=== PATIENT | female | born 1960 | race Caucasian/White ===

== ENCOUNTER → 2017-02-18 | Outpatient (CLI) | payer BC ==
--- NOTE | 2017-02-19 16:13 | BD ---
EXAMINATION TYPE: MG DEXA axial skeleton. DATE OF EXAM: 02/18/2017 COMPARISON: NONE CLINICAL HISTORY: Z13.820 SCREEN FOR OSTEOPORSIS Height: 5 FT 4 1/2 IN Weight: 151 FRAX RISK QUESTIONS: Alcohol (3 or more units per day): NO Family History (Parent hip fracture): NO Glucocorticoids (More than 3mos): NO (Ex: prednisone, prednisolone, methylprednisolone, dexamethasone, and hydrocortisone). History of Fracture in Adulthood: NO Secondary Osteoporosis: 1. Type 1 Diabetes: NO 2. Hyperthyroidism: NO 3. Menopause before 45: NO 4. Malnutrition: NO 5. Chronic liver disease: NO Rheumatoid Arthritis: NO Current Tobacco Use: NO RISK FACTORS HISTORY OF: Active: YES Postmenopausal woman: AGE 51 MEDICATIONS: Additional Medications: TETRACYCLINE NEEDED Additional History: EXAM MEASUREMENTS: Bone mineral densitometry was performed using the [facility]. Bone mineral density as measured about the Lumbar spine is: ----- L1-L4(G/cm2): 1.128 T Score Values are as follows: ----- L2: -0.5 ----- L3: 0.1 ----- L4: -0.9 ----- L1-L4: -0.4 BASELINE Bone mineral density about the R hip (g/cm2): 0.919 Bone mineral density about the L hip (g/cm2): 0.879 T Score values are as follows: -----R Neck: -0.9 -----L Neck: -1.1 -----R Total: -0.7 -----L Total: -0.6 BASELINE IMPRESSION: No evidence for osteoporosis or osteopenia. NOTE: T-SCORE=SD OF THE YOUNG ADULT MEAN.
== END | disposition home or self-care (01) ==
LOC: RADBDWWP 12:56
PROVIDERS: ATTEND Obstetrics & Gynecology
DX: Z13.820 Encounter for screening for osteoporosis (principal)
CPT/HCPCS: 77080

== ENCOUNTER → 2018-01-26 | Outpatient (CLI) | payer BC ==
--- NOTE | 2018-01-27 10:15 | MM ---
Reason for exam: screening (asymptomatic). Last mammogram was performed 1 year ago. History: Patient is postmenopausal, has history of other cancer at age 55, and is nulliparous. Family history of breast cancer in aunt at age 52 and breast cancer in paternal cousin at age 55. Benign US left CoreBiopsy of the left breast, January 17, 2005. Excisional biopsy of the left breast, 2002. 3 cyst aspirations of the left breast. 3 cyst aspirations of the right breast. Took hormonal contraceptives for 2 years. Physical Findings: A clinical breast exam by your physician is recommended on an annual basis and results should be correlated with mammographic findings. MG 3D Screening Mammo W/Cad Bilateral CC and MLO view(s) were taken. Prior study comparison: January 14, 2017, bilateral MG 3d diag mammo w/cad [facility]. January 17, 2016, bilateral MG 3d diag mammo w/cad [facility]. The breast tissue is heterogeneously dense. This may lower the sensitivity of mammography. There are round, oval, circumscribed bilateral stable masses. No suspicious abnormality. Left biopsy marker noted. ASSESSMENT: Benign, BI-RAD 2 RECOMMENDATION: Routine screening mammogram of both breasts in 1 year.
== END | disposition home or self-care (01) ==
LOC: RADMAMWWP 10:45
PROVIDERS: ATTEND Internal Medicine
DX: Z12.31 Encounter for screening mammogram for malignant neoplasm of breast (principal)
CPT/HCPCS: 77063; 77067

== ENCOUNTER → 2018-11-11 | Outpatient (CLI) | payer BC ==
--- NOTE | 2018-11-12 08:22 | US ---
EXAMINATION TYPE: US carotid duplex BILAT DATE OF EXAM: 11/11/2018 COMPARISON: NONE CLINICAL HISTORY: I65.23 Occlusion and stenosis of bilateral carotid. EXAM MEASUREMENTS: RIGHT: Peak Systolic Velocity (PSV) cm/sec ----- Right CCA: 80.8 ----- Right ICA: 85.5 ----- Right ECA: 168.8 ICA/CCA ratio: 1.1 RIGHT: End Diastole cm/sec ----- Right CCA: 29.3 ----- Right ICA: 31.5 ----- Right ECA: 40.6 LEFT: Peak Systolic Velocity (PSV) cm/sec ----- Left CCA: 75.6 ----- Left ICA: 96.5 ----- Left ECA: 65.6 ICA/CCA ratio: 1.3 LEFT: End Diastole cm/sec ----- Left CCA: 28.5 ----- Left ICA: 44.7 ----- Left ECA: 16.1 VERTEBRALS (direction of flow): Right Vertebral: Antegrade Left Vertebral: Antegrade Rhythm: Normal No significant stenosis seen, Elevated right ECA velocity. Mild bilateral plaque noted. IMPRESSION: Mild degree of grayscale atheromatous plaquing with no sonographically evident hemodynam ically significant stenosis within either visualized carotid arterial system other than elevated [place] in the right external carotid artery that may relate to 50-69% stenosis. Criteria for Assigning % of Stenosis / Diameter reduction (Estimation based on the indirect measurements of the internal carotid artery velocities (ICA PSV). 1. Normal (no stenosis)=ICA PSV < 125 cm/s: ratio < 2.0: ICA EDV<40 cm/s. 2. Less than 50% stenosis=ICA PSV < 125 cm/s: ratio < 2.0: ICA EDV<40 cm/s. 3. 50 to 69% stenosis=ICA PSV of 125 to 230 cm/s: ration 2.0 ? 4.0: ICA EDV 40-100 cm/s. 4. Greater than 70% stenosis to near occlusion= ICA PSV > 230 cm/s: ratio > 4.0: ICA EDV > 100 cm/s. 5. Near occlusion= ICA PSV velocities may be low or undetectable: variable ratio and ICA EDV. 6. Total occlusion=unable to detect flow.
--- NOTE | 2018-11-12 11:49 | ECHOF ---
Referral Reason:I35.1 Nonrheumatic Aortic Regurgitation MEASUREMENTS -------- HEIGHT: 162.6 cm WEIGHT: 64.4 kg BP: IVSd: 1.1 cm (0.6 - 1.1) LVIDd: 2.9 cm (3.9 - 5.3) LVPWd: 1.4 cm (0.6 - 1.1) IVSs: 1.6 cm LVIDs: 1.5 cm LVPWs: 1.7 cm LAESV Index (A-L): 16.90 ml/m Ao Diam: 2.5 cm (2.0 - 3.7) AV Cusp: 1.9 cm (1.5 - 2.6) LA Diam: 3.3 cm (2.7 - 3.8) MV EXCURSION: 14.317 mm (> 18.000) MV EF SLOPE: 64 mm/s (70 - 150) EPSS: 0.9 cm MV E Mervin: 0.53 m/s MV DecT: 165 ms MV A Mervin: 0.56 m/s MV E/A Ratio: 0.96 RAP: 5.00 mmHg RVSP: 12.80 mmHg TAPSE: 27.98 mm FINDINGS -------- Sinus rhythm. This was a technically good study. The left ventricular size is normal. There is mild concentric left ventricular hypertrophy. Overa ll left ventricular systolic function is normal with, an EF between 55 - 60 %. The diastolic fillin g pattern is normal for the age of the patient 6.30. The right ventricle is normal in size. The right ventricular systolic function is normal. The left atrial size is normal. The right atrial size is normal. Interatrial and interventricular septum intact. The aortic valve is trileaflet and appears structurally normal. The mitral valve is normal. There is trace mitral regurgitation. The tricuspid valve appears structurally normal. Trace tricuspid regurgitation present. Right stephanie tricular systolic pressure is normal at < 35 mmHg. There is no pulmonic regurgitation present. The aortic root size is normal. Normal inferior vena cava with normal inspiratory collapse consistent with estimated right atrial pre ssure of 5 mmHg. All pulmonary veins appear normal. The flow patterns, measured by Doppler, appear normal. There is no pericardial effusion. CONCLUSIONS -------- 1. Sinus rhythm. 2. This was a technically good study. 3. The left ventricular size is normal. 4. There is mild concentric left ventricular hypertrophy. 5. Overall left ventricular systolic function is normal with, an EF between 55 - 60 %. 6. The diastolic filling pattern is normal for the age of the patient 6.30 7. The right ventricle is normal in size. 8. The right ventricular systolic function is normal. 9. The left atrial size is normal. 10. The right atrial size is normal. 11. Interatrial and interventricular septum intact. 12. The aortic valve is trileaflet and appears structurally normal. 13. The mitral valve is normal. 14. There is trace mitral regurgitation. 15. The tricuspid valve appears structurally normal. 16. Trace tricuspid regurgitation present. 17. Right ventricular systolic pressure is normal at < 35 mmHg. 18. There is no pulmonic regurgitation present. 19. The aortic root size is normal. 20. Normal inferior vena cava with normal inspiratory collapse consistent with estimated right atrial pressure of 5 mmHg. 21. All pulmonary veins appear normal. 22. The flow patterns, measured by Doppler, appear normal. 23. There is no pericardial effusion. TIRE INSTALLER: Radha Gauthier RDCS
== END | disposition home or self-care (01) ==
LOC: RADECHMAIN 15:40
PROVIDERS: ATTEND Internal Medicine
DX: I08.1 Rheumatic disorders of both mitral and tricuspid valves (principal); I65.23 Occlusion and stenosis of bilateral carotid arteries
CPT/HCPCS: 93306; 93880

== ENCOUNTER → 2018-11-26 | Outpatient (CLI) | payer BC ==
--- NOTE | 2018-11-29 13:40 | MM ---
Reason for exam: screening (asymptomatic). Last mammogram was performed 10 months ago. History: Patient is postmenopausal, has history of other cancer at age 55, and is nulliparous. Family history of breast cancer in aunt at age 52 and breast cancer in paternal cousin at age 55. Benign US left CoreBiopsy of the left breast, January 17, 2005. Excisional biopsy of the left breast, 2002. 3 cyst aspirations of the left breast. 3 cyst aspirations of the right breast. Took hormonal contraceptives for 2 years. Physical Findings: A clinical breast exam by your physician is recommended on an annual basis and results should be correlated with mammographic findings. MG 3D Screening Mammo W/Cad Bilateral CC and MLO view(s) were taken. Prior study comparison: January 26, 2018, bilateral MG 3d screening mammo w/cad. January 14, 2017, bilateral MG 3d diag mammo w/cad [facility]. No significant changes when compared with prior studies. ASSESSMENT: Benign, BI-RAD 2 RECOMMENDATION: Routine screening mammogram of both breasts in 1 year.
== END | disposition home or self-care (01) ==
LOC: RADMAMWWP 10:58
PROVIDERS: ATTEND Internal Medicine
DX: Z12.31 Encounter for screening mammogram for malignant neoplasm of breast (principal)
CPT/HCPCS: 77063; 77067

== ENCOUNTER → 2020-01-17 | Outpatient (CLI) | payer BC, OTHER ==
--- NOTE | 2020-01-18 09:18 | MM ---
Reason for exam: screening (asymptomatic). Last mammogram was performed 1 year and 2 months ago. History: Patient is postmenopausal, has history of other cancer at age 55, and is nulliparous. Family history of breast cancer in aunt at age 52 and breast cancer in paternal cousin at age 55. Benign US left CoreBiopsy of the left breast, January 17, 2005. Excisional biopsy of the left breast, 2002. 3 cyst aspirations of the left breast. 3 cyst aspirations of the right breast. Took hormonal contraceptives for 2 years. Physical Findings: A clinical breast exam by your physician is recommended on an annual basis and results should be correlated with mammographic findings. MG 3D Screening Mammo W/Cad Bilateral CC and MLO view(s) were taken. Prior study comparison: November 26, 2018, bilateral MG 3d screening mammo w/cad. January 26, 2018, bilateral MG 3d screening mammo w/cad. The breast tissue is heterogeneously dense. This may lower the sensitivity of mammography. No significant changes when compared with prior studies. ASSESSMENT: Benign, BI-RAD 2 RECOMMENDATION: Routine screening mammogram of both breasts in 1 year.
== END | disposition home or self-care (01) ==
LOC: RADMAMWWP 11:10
PROVIDERS: ATTEND Obstetrics & Gynecology
DX: Z12.31 Encounter for screening mammogram for malignant neoplasm of breast (principal); Z80.3 Family history of malignant neoplasm of breast
CPT/HCPCS: 77063; 77067

== ENCOUNTER → 2020-10-11 | Outpatient (CLI) | payer OTHER ==
--- NOTE | 2020-10-11 16:04 | CT ---
EXAMINATION TYPE: CT abdomen pelvis w con DATE OF EXAM: 10/11/2020 HISTORY: Generalized abdominal pain, nausea and diarrhea. CT DLP: 491.1mGycm Automated Exposure Control for Dose Reduction was Utilized. CONTRAST: CT scan of the abdomen and pelvis is performed with IV Contrast, patient injected with 100ml mL of Is ovue 300. COMPARISON: None. FINDINGS: LUNG BASES: No significant abnormality is appreciated. LIVER/GB: Somewhat contracted gallbladder. Subcentimeter low dense lesion left hepatic lobe coronal i mage 24 too small to further characterize presumed benign. Similar lesions seen right hepatic lobe co angelina image 21. PANCREAS: No significant abnormality is seen. SPLEEN: No significant abnormality is seen. ADRENALS: No significant abnormality is seen. KIDNEYS: Symmetric cortical medullary uptake and excretion with extrarenal pelvis on the left. No sig nificant calyceal dilatation. There is near 1.0 cm low dense lesion right kidney laterally midpole le yamil series 7 image 32 is presumed benign. [id number]-vr-[id number] distention of bladder BOWEL: Oral contrast reaches level of cecum. Normal-appearing appendix from base of cecum. No suspici ous small or large bowel dilatation. Scattered colonic diverticula with more prominent diverticulosis in the redundant sigmoid colon. Mild diffuse colonic fecal prominence. No convincing CT evidence for acute diverticulitis. UTERUS/ADNEXA: Anteverted small size uterus consistent with patient's postmenopausal age. No suspicio us adnexal masses. Scattered bilateral pelvic phleboliths. LYMPH NODES: Single suspicious lymph node right upper abdomen posterior to IVC axial image 23 measure s 13 x 9 mm OSSEOUS STRUCTURES: Mqtiaxvc-ob-cckhmn disc space narrowing with endplate sclerosis at lumbosacral ju nction. Mild to moderate narrowing of both hip joints. OTHER: No significant additional abnormality is seen. IMPRESSION: 1. No bowel obstruction. Prominent sigmoid colonic diverticulosis noted. No convincing CT evidence fo r acute diverticulitis. Mild diffuse colonic fecal stasis. 2. Suspicious upper abdominal right retroperitoneal lymph node measuring 13 x 9 mm posterior to IVC j ust below right adrenal gland of uncertain etiology or clinical significance. Consider short-term CT follow-up in 3-6 months time to reassess.
== END | disposition home or self-care (01) ==
LOC: RADCTMAIN 13:56
PROVIDERS: ATTEND Internal Medicine
DX: K57.30 Diverticulosis of large intestine without perforation or abscess without bleeding (principal); R19.5 Other fecal abnormalities
CPT/HCPCS: 74177; Q9967

== ENCOUNTER → 2021-06-13 | Outpatient (CLI) | payer OTHER ==
--- NOTE | 2021-06-17 09:51 | MM ---
Reason for exam: screening (asymptomatic). Last mammogram was performed 1 year and 5 months ago. History: Patient is postmenopausal, has history of other cancer at age 55, and is nulliparous. Family history of breast cancer in aunt at age 52 and breast cancer in paternal cousin at age 55. Benign US left CoreBiopsy of the left breast, January 17, 2005. Excisional biopsy of the left breast, 2002. 3 cyst aspirations of the left breast. 3 cyst aspirations of the right breast. Took hormonal contraceptives for 2 years. Physical Findings: A clinical breast exam by your physician is recommended on an annual basis and results should be correlated with mammographic findings. MG 3D Screening Mammo W/Cad Bilateral CC and MLO view(s) were taken. Prior study comparison: January 17, 2020, bilateral MG 3d screening mammo w/cad. November 26, 2018, bilateral MG 3d screening mammo w/cad. The breast tissue is heterogeneously dense. This may lower the sensitivity of mammography. Previous mammotome biopsy in the left breast. No significant changes when compared with prior studies. ASSESSMENT: Benign, BI-RAD 2 RECOMMENDATION: Routine screening mammogram of both breasts in 1 year.
== END | disposition home or self-care (01) ==
LOC: RADMAMWWP 14:30
PROVIDERS: ATTEND Internal Medicine
DX: Z12.31 Encounter for screening mammogram for malignant neoplasm of breast (principal)
CPT/HCPCS: 77063; 77067

== ENCOUNTER → 2022-06-17 | Outpatient (CLI) | payer BC ==
--- NOTE | 2022-06-18 08:17 | MM ---
Reason for Exam: Screening (asymptomatic). Last screening mammogram was performed 12 month(s) ago. Indicated Problems: Pain of the left side (Global) for 6 Month(s). Patient History: Menarche at age 12. Patient has no children. Postmenopausal. Patient used Hormonal Contraceptives for 2 years. Cyst Aspiration on the Right side. Cyst Aspiration on the Right side. Cyst Aspiration on the Right side. Cyst Aspiration on the Left side. Cyst Aspiration on the Left side. Cyst Aspiration on the Left side. 2002, Excisional Biopsy on the Left side. 01/17/2005, Benign Core Biopsy on the left side. Paternal cousin had breast cancer, age 55. Maternal aunt had breast cancer, age 52. Risk Values: Cori 5 year model risk: 2.6%. NCI Lifetime model risk: 10.9%. Prior Study Comparison: 11/26/2018 Bilateral Screening Mammogram, [facility]. 01/17/2020 Bilateral Screening Mammogram, [facility]. 06/13/2021 Bilateral Screening Mammogram, [facility]. Tissue Density: The breast tissue is heterogeneously dense. This may lower the sensitivity of mammography. Findings: Analyzed By CAD. There is no suspicious group of microcalcifications or new suspicious mass in either breast. Previous mammotome biopsy in the left breast. Overall Assessment: Benign, BI-RAD 2 Management: Screening Mammogram of both breasts in 1 year. A clinical breast exam by your physician is recommended on an annual basis and results should be correlated with mammographic findings. Electronically signed and approved by: Rell Chavarria D.O.
== END | disposition home or self-care (01) ==
LOC: RADMAMWWP 09:15
PROVIDERS: ATTEND Obstetrics & Gynecology
DX: Z12.31 Encounter for screening mammogram for malignant neoplasm of breast (principal); Z78.0 Asymptomatic menopausal state; Z80.3 Family history of malignant neoplasm of breast
CPT/HCPCS: 77063; 77067

== ENCOUNTER → 2023-01-27 | Outpatient (CLI) | payer BC ==
--- NOTE | 2023-01-27 10:53 | US ---
EXAMINATION TYPE: US venous doppler duplex LE LT DATE OF EXAM: 01/27/2023 10:03 AM COMPARISON: NONE CLINICAL INDICATION: Female, 62 years old with history of M79.605 PAIN IN LEG M79.89 SWELILNG; Left l eg tingling and feels hot/ no prior DVT, pt not on blood thinners SIDE PERFORMED: Left TECHNIQUE: The lower extremity deep venous system is examined utilizing real time linear array sonog carmine with graded compression, doppler sonography and color-flow sonography. VESSELS IMAGED: Common Femoral Vein Deep Femoral Vein Greater Saphenous Vein * Femoral Vein Popliteal Vein Small Saphenous Vein * Proximal Calf Veins (* superficial vessels) Imaged veins fill with normal color signal, show the expected waveforms and compressibility. No evide nce of intraluminal filling defect. Left Leg: Negative for DVT IMPRESSION: No evidence of DVT in the left lower extremity.
== END | disposition home or self-care (01) ==
LOC: RADUSWWP 09:41
PROVIDERS: ATTEND Internal Medicine
DX: M79.89 Other specified soft tissue disorders (principal); M79.605 Pain in left leg

== ENCOUNTER → 2023-07-16 | Outpatient (CLI) | payer BC ==
--- NOTE | 2023-07-16 20:09 | BD ---
EXAMINATION TYPE: Axial Bone Density DATE OF EXAM: 07/16/2023 CLINICAL HISTORY: 63 years old Female. ICD-10 CODE: Z13.820 SCREENING FOR OSTEOPOROSI Height: 64 in Weight: 143 lbs FRAX RISK QUESTIONS: History of Fracture in Adulthood: rt wrist fx age 61 EXAM MEASUREMENTS: Bone mineral densitometry was performed using the [facility]. Bone mineral density as measured about the Lumbar spine is: ----- L1-L4(G/cm2): 1.068 T Score Values are as follows: ----- L1: -0.8 ----- L2: -0.8 ----- L3: -1.0 ----- L4: -1.2 ----- L1-L4: -0.9 Z Score Values are as follows: ----- L1: 0.7 ----- L2: 0.7 ----- L3: 0.6 ----- L4: 0.3 ----- L1-L4: 0.6 Bone mineral density has: Decreased -5.3% since study of: 02/18/2017 Bone mineral density about the R hip (g/cm2): 0.874 Bone mineral density about the L hip (g/cm2): 0.905 T Score values are as follows: -----R Neck: -1.1 -----L Neck: -1.3 -----R Total: -1.1 -----L Total: -0.8 Z Score values are as follows: -----R Neck: 0.3 -----L Neck: 0.2 -----R Total: 0.1 -----L Total: 0.3 Bone mineral density has: Decreased -4.2% since study of: 02/18/2017 FRAX%s: The graph provided illustrates a 13.8% chance for a major osteoporotic fx and a 1.2% chance f or the hips probability for fx in 10 years time. IMPRESSION: Osteopenia (T Score between -2.5 and -1). There is slightly increased risk of fracture and the patient may be considered for treatment. Re-Screen 2-5 years. NOTE: T-SCORE=SD OF THE YOUNG ADULT MEAN.
--- NOTE | 2023-07-16 21:26 | MM ---
Reason for Exam: Screening (asymptomatic). Last mammogram was performed 1 year(s) and 1 month(s) ago. Patient History: Menarche at age 12. Patient has no children. Postmenopausal. Patient used Hormonal Contraceptives for 2 years. Cyst Aspiration on the Right side. Cyst Aspiration on the Right side. Cyst Aspiration on the Right side. Cyst Aspiration on the Left side. Cyst Aspiration on the Left side. Cyst Aspiration on the Left side. 2002, Excisional Biopsy on the Left side. 01/17/2005, Benign Core Biopsy on the left side. Paternal cousin had breast cancer, age 55. Maternal aunt had breast cancer, age 52. Risk Values: Cori 5 year model risk: 2.7%. NCI Lifetime model risk: 10.6%. Prior Study Comparison: 01/17/2020 Bilateral Screening Mammogram, [facility]. 06/13/2021 Bilateral Screening Mammogram, [facility]. 06/17/2022 Bilateral MG 3D screening mammo w/cad, [facility]. Tissue Density: The breasts are heterogeneously dense, which may obscure small masses. Findings: Analyzed By CAD. Central asymmetric density right MLO view slightly superiorly at a middle to posterior depth is more defined. This may represent superimposition shadow but further evaluation is recommended. Other areas of bilaterally symmetric density are unchanged. Microclip left breast from prior biopsy. Overall Assessment: Incomplete: need additional imaging evaluation, BI-RAD 0 Management: Special View Mammogram of the right breast. . [facility] will attempt to contact patient to return for supplemental views and ultrasound if indicated. Electronically signed and approved by: Lian De Paz M.D. Radiologist
== END | disposition home or self-care (01) ==
LOC: RADMAMWWP 14:07
PROVIDERS: ATTEND Internal Medicine
DX: Z12.31 Encounter for screening mammogram for malignant neoplasm of breast (principal); Z13.820 Encounter for screening for osteoporosis; M85.89 Other specified disorders of bone density and structure, multiple sites; Z80.3 Family history of malignant neoplasm of breast; Z78.0 Asymptomatic menopausal state
CPT/HCPCS: 77063; 77067; 77080

== ENCOUNTER → 2023-07-22 | Outpatient (CLI) | payer BC ==
--- NOTE | 2023-07-22 10:56 | MM ---
Reason for Exam: Additional evaluation requested from abnormal screening. Last screening mammogram was performed less than 1 month ago. Patient History: Menarche at age 12. Patient has no children. Postmenopausal. Patient used Hormonal Contraceptives for 2 years. Cyst Aspiration on the Right side. Cyst Aspiration on the Right side. Cyst Aspiration on the Right side. Cyst Aspiration on the Left side. Cyst Aspiration on the Left side. Cyst Aspiration on the Left side. 2002, Excisional Biopsy on the Left side. 01/17/2005, Benign Core Biopsy on the left side. Paternal cousin had breast cancer, age 55. Maternal aunt had breast cancer, age 52. Risk Values: Cori 5 year model risk: 2.7%. NCI Lifetime model risk: 10.6%. Prior Study Comparison: 01/17/2016 Bilateral Diagnostic Mammogram, [facility]. 01/17/2020 Bilateral Screening Mammogram, [facility]. 06/17/2022 Bilateral MG 3D screening mammo w/cad, [facility]. 07/16/2023 Bilateral MG 3D screening mammo w/cad, [facility]. Tissue Density: Right: The breasts are heterogeneously dense, which may obscure small masses. Findings: Analyzed By CAD. Asymmetric density does not persist with additional spot compression imaging. No masses are present at this time. Overall Assessment: Negative, BI-RAD 1 Management: Screening Mammogram of both breasts in 1 year. . Results were given to the patient verbally at the time of exam. Patient should continue monthly self-breast exams. A clinical breast exam by your physician is recommended on an annual basis. This exam should not preclude additional follow-up of suspicious palpable abnormalities. Note on Cori scores and lifetime risk: 1. A Cori score greater than 3% is considered moderate risk. If this is the case, consider specialist referral to assess eligibility for a risk reducing agent. 2. If overall lifetime risk for the development of breast cancer is 20% or higher, the patient may qualify for future screening with alternating mammogram and breast MRI. Electronically signed and approved by: Glenn Noriega M.D. Radiologis
== END | disposition home or self-care (01) ==
LOC: RADMAMWWP 09:57
PROVIDERS: ATTEND Internal Medicine
DX: R92.331 Mammographic heterogeneous density, right breast (principal); R92.8 Other abnormal and inconclusive findings on diagnostic imaging of breast; Z78.0 Asymptomatic menopausal state; Z80.3 Family history of malignant neoplasm of breast
CPT/HCPCS: 77061; 77065

== ENCOUNTER → 2023-12-29 | Outpatient (CLI) | payer BC ==
--- NOTE | 2023-12-29 15:47 | US ---
EXAMINATION TYPE: US carotid duplex BILAT DATE OF EXAM: 12/29/2023 COMPARISON: US 2018 CLINICAL INDICATION: Female, 63 years old with history of I65.23 STENOSIS I34.0 NONRHUEM MITRAL VALVE REGURG; TECHNIQUE: Grayscale, color Doppler and spectral Doppler evaluation of the bilateral carotid systems and vertebral arteries. Indirect Doppler criteria was utilized. FINDINGS: EXAM MEASUREMENTS: RIGHT: Peak Systolic Velocity (PSV) cm/sec ----- Right CCA: 74.3 ----- Right ICA: 113.1 ----- Right ECA: 84.2 ICA/CCA ratio: 1.5 RIGHT: End Diastole cm/sec ----- Right CCA: 24.8 ----- Right ICA: 41.0 ----- Right ECA: 14.7 LEFT: Peak Systolic Velocity (PSV) cm/sec ----- Left CCA: 73.2 ----- Left ICA: 85.4 ----- Left ECA: 79.5 ICA/CCA ratio: 1.2 LEFT: End Diastole cm/sec ----- Left CCA: 23.7 ----- Left ICA: 40.3 ----- Left ECA: 18.5 VERTEBRALS (direction of flow): Right Vertebral: Antegrade Left Vertebral: Antegrade Rhythm: Normal Color Doppler imaging shows patency with blood flow throughout the carotid artery. Spectral waveforms are within normal limits. IMPRESSION: Right: Less than 50% stenosis of the carotid bifurcation. Normal (no stenosis)=ICA PSV < 125 cm/s: ra mae < 2.0: ICA EDV<40 cm/s. Left: Less than 50% stenosis of the carotid bifurcation. Normal (no stenosis)=ICA PSV < 125 cm/s: rat io < 2.0: ICA EDV<40 cm/s. Criteria for Assigning % of Stenosis / Diameter reduction (Estimation based on the indirect measurements of the internal carotid artery velocities (ICA PSV). 1. Normal (no stenosis)=ICA PSV < 125 cm/s: ratio < 2.0: ICA EDV<40 cm/s. 2. Less than 50% stenosis=ICA PSV < 125 cm/s: ratio < 2.0: ICA EDV<40 cm/s. 3. 50 to 69% stenosis=ICA PSV of 125 to 230 cm/s: ration 2.0 ? 4.0: ICA EDV 40-100 cm/s. 4. Greater than 70% stenosis to near occlusion= ICA PSV > 230 cm/s: ratio > 4.0: ICA EDV > 100 cm/s. 5. Near occlusion= ICA PSV velocities may be low or undetectable: variable ratio and ICA EDV. 6. Total occlusion=unable to detect flow. [facility], , 12/29/2023 3:45 PM
--- NOTE | 2023-12-30 17:18 | CA ---
Transthoracic Echo Report Name: Mireille Slo Age: 63 Gender: F : 1960 Exam Date: 12/29/2023 15:04 Exam Location: [place] [facility] Ht (in): 64 Wt (lb): 140 Ordering Physician: Kunal Villareal MD Attending/Referring Phys: Secretary Specialist Valerie Vargas RDCS Procedure CPT: Indications: I34.0 nonrheumatic mitral valve regurgitation Cardiac Hx: Technical Quality: Good Contrast 1: Total Dose (mL): Contrast 2: Total Dose (mL): MEASUREMENTS (Male / Female) Normal Values 2D ECHO LV Diastolic Diameter PLAX 4.3 cm 4.2 - 5.9 / 3.9 - 5.3 cm LV Systolic Diameter PLAX 3.0 cm IVS Diastolic Thickness 1.1 cm 0.6 - 1.0 / 0.6 - 0.9 cm LVPW Diastolic Thickness 1.1 cm 0.6 - 1.0 / 0.6 - 0.9 cm LV Relative Wall Thickness 0.5 RV Internal Dim ED PLAX 2.2 cm LA Systolic Diameter LX 3.0 cm 3.0 - 4.0 / 2.7 - 3.8 cm LV Diastolic Volume MOD BP 55.4 cm??? 67 - 155 / 56 - 104 cm??? LV Systolic Volume MOD BP 19.9 cm??? 22 - 58 / 19 - 49 cm??? LV Ejection Fraction MOD BP 64.1 % >= 55 % LV Cardiac Index MOD BP 1667.3 cm???/min???m??? LV Diastolic Volume MOD 4C 56.4 cm??? LV Systolic Volume MOD 4C 22.4 cm??? LV Ejection Fraction MOD 4C 60.4 % LV Cardiac Index MOD 4C 1601.5 cm???/min???m??? LV Diastolic Length 4C 7.0 cm LV Systolic Length 4C 5.6 cm LV Diastolic Volume MOD 2C 49.7 cm??? LV Systolic Volume MOD 2C 17.4 cm??? LV Ejection Fraction MOD 2C 65.0 % LV Cardiac Index MOD 2C 1517.2 cm???/min???m??? LV Diastolic Length 2C 6.4 cm LV Systolic Length 2C 5.7 cm LA Volume 21.2 cm??? 18 - 58 / 22 - 52 cm??? LA Volume Index 12.4 cm???/m??? 16 - 28 cm???/m??? M-MODE Aortic Root Diameter MM 2.5 cm LA Systolic Diameter MM 3.1 cm LA Ao Ratio MM 1.2 AV Cusp Separation MM 1.7 cm DOPPLER MV Area PHT 3.3 cm??? Mitral E Point Velocity 44.2 cm/s Mitral A Point Velocity 63.9 cm/s Mitral E to A Ratio 0.7 MV Deceleration Time 230.4 ms TR Peak Velocity 193.7 cm/s TR Peak Gradient 15.0 mmHg FINDINGS Left Ventricle Left ventricular ejection fraction is estimated at 55-60%. Mildly increased septal wall thickness. Mildly increased posterior wall thickness. Normal left ventricular wall motion. Left ventricular cavity size normal. Right Ventricle Normal right ventricular size and function. Right ventricular systolic pressure within normal limits. Right Atrium Normal right atrial size. Left Atrium Normal left atrial size. Mitral Valve Structurally normal mitral valve. No mitral stenosis. Mild mitral regurgitation. Aortic Valve Trileaflet aortic valve. No aortic valve stenosis or regurgitation. Tricuspid Valve Structurally normal tricuspid valve. Mild tricuspid regurgitation. No tricuspid stenosis. Pulmonic Valve Structurally normal pulmonic valve. Trace pulmonic regurgitation. No pulmonic stenosis. Pericardium No pericardial or pleural effusion. Aorta Normal size aortic root and proximal ascending aorta. CONCLUSIONS LVEF 55 to 60% Mild concentric LVH No obvious regional wall motion abnormality Mild MR and mild TR Previewed by: Dr Jack Mcnair (Electronically Signed) Final Date: 30 December 2023 17:18
== END | disposition home or self-care (01) ==
LOC: RADUSWWP 13:58
PROVIDERS: ATTEND Internal Medicine
DX: I65.23 Occlusion and stenosis of bilateral carotid arteries (principal); I34.0 Nonrheumatic mitral (valve) insufficiency
CPT/HCPCS: 93306; 93880